=== PATIENT | male | born 1955 | race African-American/Black ===

== ENCOUNTER 2019-05-20 04:07 | Emergency (ER) | payer OTHER ==
[~2019-05-20] VITALS: Ht 165.1 cm; Wt 80.7 kg
--- NOTE | 2019-05-20 04:20 | NUR ---
PT BIBSELF C/O PAIN IN LEFT EYE. PT ALSO C/O BILATERAL BUTTOCKS PAIN, PT STATES "I'M WORRIED MY PROSTATE CANCER IS COMING BACK" PT AAOX4. RESPIRATIONS EVEN AND UNLABORED. SKIN INTACT. NO ACUTE DISTRESS NOTED AT THIS TIME. WILL CONTINUE TO MONITOR
--- NOTE | 2019-05-20 04:48 | NUR ---
IV INITIATED LAC 18G. LABS DRAWN FROM SITE. EMERGENCY MANAGEMENT PROGRAM SPECIALIST AT BEDSIDE FOR COLLECTION. IV INTACT AND PATENT PLACED ON SALINE LOCK
[2019-05-20] MEDS ORDERED: CLINDAMYCIN 900 MG/6 ML VIAL ONE (04:52)
[2019-05-20 04:53] LABS: BASOPHILS # (AUTO) 0.1 /CMM (0.0-0.2); BASOPHILS % (AUTO) 1.3 % (0.0-2.0); EOSINOPHILS % (AUTO) 1.3 % (0.0-6.0); HEMATOCRIT 42 % (39-51); HEMOGLOBIN 14.4 g/dL (13.5-17.5); LYMPHOCYTES # (AUTO) 1.5 /CMM (0.8-4.8); MEAN CORPUSCULAR HGB CONC 34 g/dl (31.0-36.0); MEAN CORPUSCULAR VOLUME 94 fL (80-96); MONOCYTES % (AUTO) 10.3 % (2.0-12.0); NEUTROPHILS % (AUTO) 72.1 % (43.0-81.0); PLATELET COUNT (AUTO) 340 /CMM (150-450); RED BLOOD CELL COUNT(AUTO) 4.51 MIL/uL (4.5-6.0); WHITE BLOOD COUNT (AUTO) 9.8 K/uL (4.3-11.0)
[2019-05-20 05:00] LABS: CALCIUM, SERUM 8.9 mg/dL (8.5-10.1); CREATININE 1.3 mg/dL (0.6-1.3); POTASSIUM 4.6 mmol/L (3.5-5.1)
[2019-05-20] MEDS ORDERED: CLINDAMYCIN IV RTU IN D5W 900 MG/50 ML PIGGYBACK IV ONE (05:00)
[2019-05-20] MEDS ORDERED: IOHEXOL-300 100 ML VIAL IV ONE (05:09)
--- NOTE | 2019-05-20 05:19 | NUR ---
PT BROUGHT BY RADIOLOGY TO CT
[2019-05-20 06:16] VITALS: BP 149/91
--- NOTE | 2019-05-20 06:16 | NUR ---
Patient discharged to home in stable condition. Written and verbal after care instructions given. Patient verbalizes understanding of instruction.IV removed. Catheter intact and site benign. Pressure and 4x4 applied to site. No bleeding noted.Pt ambulatory with a steady gait
== END 2019-05-20 06:17 | disposition home or self-care (01) ==
LOC: ER 04:09
DX: H05.012 Cellulitis of left orbit (principal); I10 Essential (primary) hypertension; J45.909 Unspecified asthma, uncomplicated; F17.200 Nicotine dependence, unspecified, uncomplicated; Z85.46 Personal history of malignant neoplasm of prostate; Z88.0 Allergy status to penicillin; Z88.6 Allergy status to analgesic agent; Z98.890 Other specified postprocedural states
CPT/HCPCS: 36415; 74177; 80048; 85025; 96365; 99284; J3490 ×2; Q9967; J7060

== ENCOUNTER 2022-06-28 22:21 | Inpatient (IN) | payer OTHER, MEDICAID ==
[~2022-06-28] VITALS: Ht 172.7 cm; Wt 81.6 kg
--- NOTE | 2022-06-28 22:38 | NUR ---
EWARA 839 FOR LLE BLISTERS X 5 DAYS. PATIENT ALERT AND ORIENTED X4. AMBULATORY WITH ASSISTANCE. PATIENT IN BED 14 ON MONITOR AND POX AWAITING MD CHAVEZ.
[2022-06-28] MEDS ORDERED: methylPREDNISolone SOD SUCC 125 MG/2ML VIAL IV ONE (23:00)
[2022-06-28] MEDS ORDERED: DOXYCYCLINE 100 MG in IV D5W 100 ML IV ONE (23:00)
[2022-06-28] MEDS ORDERED: methylPREDNISolone SOD SUCC 125 MG/2ML VIAL ONE (23:09)
[2022-06-28] MEDS ORDERED: DOXYCYCLINE 100 MG VIAL ONE (23:09)
--- NOTE | 2022-06-28 23:35 | NUR ---
blood collected and sent to lab
--- NOTE | 2022-06-28 23:36 | NUR ---
COVID SWAB DONE AND SENT TO LAB
[2022-06-28 23:53] LABS: BASOPHILS % (AUTO) 0.2 % (0.0-2.0); EOSINOPHILS % (AUTO) 0.6 % (0.0-6.0); HEMATOCRIT 41 % (39-51); HEMOGLOBIN 12.7 g/dL (13.5-17.5); LYMPHOCYTES # (AUTO) 0.2 K/uL (0.8-4.8); LYMPHOCYTES % (AUTO) 6.3 % (20.0-44.0); MEAN CORPUSCULAR HGB CONC 31 g/dl (31.0-36.0); MEAN CORPUSCULAR VOLUME 85 fL (80-96); MONOCYTES # (AUTO) 0.2 K/uL (0.1-1.30); MONOCYTES % (AUTO) 6.5 % (2.0-12.0); NEUTROPHILS # (AUTO) 2.3 K/uL (1.8-8.9); NEUTROPHILS % (AUTO) 86.4 % (43.0-81.0); PLATELET COUNT (AUTO) 191 K/uL (150-450); RED BLOOD CELL COUNT(AUTO) 4.78 MIL/uL (4.5-6.0); WHITE BLOOD COUNT (AUTO) 2.6 K/uL (4.3-11.0)
[2022-06-29 00:31] LABS: CALCIUM, SERUM 8.3 mg/dL (8.5-10.1); CARBON DIOXIDE 22 mmol/L (21-32); CHLORIDE 103 mmol/L (98-107); POTASSIUM 3.8 mmol/L (3.5-5.1); SODIUM SERUM 130 mmol/L (136-145); UREA NITROGEN, BLOOD 35 mg/dL (7-18)
--- NOTE | 2022-06-29 00:43 | NUR ---
GLUCOSE 39 DR. BRANDO POLLARD AWARE
--- NOTE | 2022-06-29 00:44 | NUR ---
CLINICALS GIVEN TO KEELEY OVER THE PHONE
--- NOTE | 2022-06-29 00:50 | NUR ---
POC ACCUCHECK 39; PT ASYMPTOMATIC VERBAL ORDERS FROM DR. MICHAELS ORDERED TO GIVE PT JUICE. ORDERS CARRIED OUT
[2022-06-29 01:12] LABS: GLUCOSE 39 mg/dL (74-106)
--- NOTE | 2022-06-29 01:12 | NUR ---
REC'D VERBAL AUTH FROM [facility] TO ADMIT THE PT
--- NOTE | 2022-06-29 01:43 | NUR ---
GLU 96
[2022-06-29] MEDS ORDERED: SPIR25TA6 PO (01:51)
[2022-06-29] MEDS ORDERED: FURO-144 PO (01:51)
[2022-06-29] MEDS ORDERED: POTA8TAB3 PO (01:51)
[2022-06-29] MEDS ORDERED: DAPA10TA PO (01:51)
[2022-06-29] MEDS ORDERED: NITR0.4T48 SL (01:51)
[2022-06-29] MEDS ORDERED: FUROSEMIDE 40 MG/4 ML VIAL ONE (01:52)
[2022-06-29] MEDS ORDERED: CLOP75TA15 PO (01:53)
[2022-06-29] MEDS ORDERED: SACU1TAB PO (01:53)
[2022-06-29] MEDS ORDERED: METO25TA4 PO (01:53)
[2022-06-29] MEDS ORDERED: FUROSEMIDE 40 MG/4 ML VIAL IV ONE (02:00)
--- NOTE | 2022-06-29 02:00 | NUR ---
DR. BRANDO POLLARD ON PHONE CALL WITH DR. HAYWARD
[2022-06-29] MEDS ORDERED: ACETAMINOPHEN 325 MG TABLET PO PRN (02:30)
[2022-06-29] MEDS ORDERED: ZOLPIDEM TARTRATE 5 MG TABLET PO PRN (02:30)
[2022-06-29] MEDS ORDERED: ACETAMINOPHEN 325 MG TABLET ONE (04:05)
--- NOTE | 2022-06-29 04:44 | NUR ---
Patient does not wish to proceed with medical care recommended by Dr. Sheridan. Patient given information related to possible complications, up to and including , which could occur as a result of leaving the hospital at this time. Patient verbalizes understanding of risks involved due to leaving against medical advice. Patient has signed AMA form.
[2022-06-29 04:45] VITALS: BP 136/78
[2022-06-29] MEDS ORDERED: DAPAGLIFLOZIN PROPANEDIOL 5 MG TABLET PO SCH (09:00)
[2022-06-29] MEDS ORDERED: CLOPIDOGREL BISULFATE 75 MG TABLET PO SCH (09:00)
[2022-06-29] MEDS ORDERED: SACUBITRIL/VALSARTAN 1 EACH TABLET PO SCH (09:00)
[2022-06-29] MEDS ORDERED: METOPROLOL SUCCINATE 25 MG TAB.SR.24H PO SCH (09:00)
[2022-06-29] MEDS ORDERED: BUMETANIDE INJ 0.25 MG/ML VIAL IV SCH (09:00)
[2022-06-29] MEDS ORDERED: SPIRONOLACTONE 25 MG TABLET PO SCH (09:00)
== END 2022-06-29 04:44 | disposition left against medical advice (07) | DRG 292 ==
LOC: ER 22:22 → TRANSITION 06-29 02:23
PROVIDERS: ADMIT Internal Medicine; ATTEND Internal Medicine
DX: I11.0 Hypertensive heart disease with heart failure (principal); L12.0 Bullous pemphigoid; I50.9 Heart failure, unspecified; E16.2 Hypoglycemia, unspecified; Z20.822 Contact with and (suspected) exposure to COVID-19
CPT/HCPCS: 36415; 71045-TC; 80048-TC; 82962-TC; 83880; 84484-TC; 85025-TC; 85652-TC; 86140-TC; C9803; G0378; J1940; J2930; J3490; J7060